=== PATIENT | female | born 1980 | race Caucasian/White ===

== ENCOUNTER 2019-06-21 08:00 | Day surgery (SDC) | payer OTHER, SELFPAY ==
--- NOTE | 2019-06-21 | PATH_ITS ---
[facility] Accession Number: [id number] . 01 Material submitted: . PART A: duodenum - DUODENAL BIOPSIES PART B: gastrointestinal site - GASTRIC ANTRAL BIOPSIES . 01 Clinical history: . A. R/O CELIAC SPRUE B. R/O H. PYLORI, GASTRITIS . 02 Diagnosis: A. Duodenum, Biopsy: Duodenal mucosa with no diagnostic abnormality. Negative for active inflammation, features of sprue, dysplasia, or malignancy. . B. Stomach, Antrum, Biopsies: Gastric antral and body mucosa with mild chronic inflammation. Negative for Helicobacter organisms by immunohistochemistry. Negative for intestinal metaplasia. Negative for dysplasia or malignancy. MRV 06/26/2019 1255 Local . 02 Electronically signed: . Chadd Ivey MD, PhD, Pathologist NPI- [id number] . 01 Gross description: . Part A: DUODENAL BIOPSIES: Received in formalin are 3 fragment(s) of cabezas, soft tissue measuring 0.3 x 0.2 x 0.2 cm to 0.2 x 0.1 x 0.1 cm submitted entirely in 1 cassette(s) Part B: GASTRIC ANTRAL BIOPSIES: Received in formalin are 2 fragment(s) of cabezas, soft tissue measuring 0.4 x 0.2 x 0.1 cm to 0.2 x 0.2 x 0.2 cm submitted entirely in 1 cassette(s) /QBJ 06/22/2019 0039 Local . 02 Microscopic: . B. An immunohistochemical stain is performed to evaluate for Helicobacter organisms, and is negative. A control stain shows appropriate reactivity. . * This test was developed and its performance characteristics determined by [facility]. It has not been cleared or approved by the U.S. Food and Drug Administration. The FDA has determined that such clearance or approval is not necessary. This test is used for clinical purposes. It should not be regarded as investigational or for research. . 02 Pathologist provided ICD-10: K29.70, R12 . 02 CPT . 817457, 377076, [id number] Performed at: 01 [facility] [address] [id number] MD Scott Peacock MD Phone: [phone] Performed at: [address] [place] [id number] [place] [id number] MD Stacie Garcia MD Phone: [phone]
[2019-06-21 08:36] VITALS: BP 113/77; PULSE 65; RESP 16; TEMP 36.2; O2SAT 99; BMI 30.5
--- NOTE | 2019-06-21 09:55 | PM.HP.1 ---
History of Present Illness History of Present Illness Date Patient Seen: 06/21/19 Time Patient Seen: 09:56 Chief complaint: [phone] [id number] Narrative: Patient presented for EGD - symptoms of atypical CP and heartburn. No change in symptoms since office visit 05/30/19. Patient History Medical History delivery delivered (Acute) Exploratory laparotomy scar (Acute) Family & Social History Social History: household members spouse Meds Home Medications and Allergies Home Medications Medication Instructions Recorded Confirmed Type etonogestrel [Nexplanon] See Rx Instructions .ROUTE .COMPLEX 06/21/19 06/21/19 History Allergies Allergy/AdvReac Type Severity Reaction Status Date / Time No Known Drug Allergies Allergy Verified 06/21/19 08:28 Review of Systems Review of Systems ROS Unobtainable: All systems reviewed & are unremarkable except as noted in HPI and below Exam Vital Signs (past 8 hours): - 06/21/19 08:36 Temperature 97.1 F L Pulse Rate 65 Respiratory Rate 16 Blood Pressure 113/77 Pulse Oximetry 99 Oxygen Delivery Method Room Air Const General: cooperative, healthy appearing, comfortable and well developed Nutritional Appearance: average body habitus and well nourished Orientation: oriented x3 HENMT Head: normocephalic and atraumatic Nose: external nose normal Resp Effort & Inspection: normal respiratory effort and able to speak in complete sentences Auscultation: clear to auscultation bilaterally Cardio Rate: regular rate Rhythm: regular rhythm Heart Sounds: S1 normal and S2 normal GI Palpation: soft, No guarding, No rigid and No tender Auscultation: normal bowel sounds Extrem Left upper extremity: no edema Right lower extremity: no edema Assessment & Plan Assessment & Plan narrative: 1. Atypical chest pain 2. [place] EGD today, further recommendations to follow.
[2019-06-21] MEDS: SODIUM CHLORIDE 0.9% 1,000 ML 70 ML IV (10:01)
[2019-06-21] MEDS: MIDAZOLAM 5 MG/5 ML VIAL IV (10:07)
[2019-06-21] MEDS: fentaNYL 250 MCG/5 ML INJ IV (10:08)
[2019-06-21] MEDS: LIDOCAINE 4% SOLN 50 ML 20 ML TOP (10:21)
--- NOTE | 2019-06-21 10:28 | P.OP.ENDO_ITS ---
Operative Date/Time/Diagnoses Date of procedure: 06/21/19 Time of procedure: 10:07 Procedure Notes Procedure in detail: Surgeon: María Underwood DO Procedure: Esophagogastroduodenoscopy with biopsy Preoperative diagnosis: 1. Atypical chest pain 2. Heartburn Postoperative diagnosis: 1. Normal-appearing esophagus 2. Small hiatal hernia approximately 2 cm 3. Mild gastritis -biopsied 4. Mild duodenitis -biopsied 5. Otherwise unremarkable Medications: Conscious sedation using 5 mg IV of Midazolam and 125 mcg IV of Fentanyl Preanesthesia Assessment An H and P was performed/updated and the Px?s ASA class is 2. The procedure was discussed in detail with the patient. The potential risks and complications including infection, bleeding, missed lesions, perforation, need for surgery in case of perforation, prolonged hospital stay, and were explained. A brief question and answer period was allotted and once all questions were answered, informed consent was obtained. The patient was brought back to the procedure room and placed on standard monitoring. The patient?s vital signs were monitored continuously throughout the entire procedure. Prior to starting, a timeout was performed to confirm the patient?s identity, allergies, medications, and procedure. Procedure in detail The patient was placed in left lateral decubitus position and a bite block was inserted. The tip of the upper endoscope was placed into the mouth and advan ángel without difficulty under direct visualization into the esophagus. Esophagus: Normal appearing esophagus, no evidence of stricture Stomach: Small hiatal hernia -2 cm found during retroflexion Mild gastritis in the antrum and body -biopsy to rule out H pylori Duodenum: Mild duodenitis in the duodenal bulb and 1st portion of the duodenum Biopsy rule out celiac sprue The patient tolerated the procedure well and will be brought back to the recovery area to be discharged once criteria are met. The total physician intraservice time was 12min. Complications There were no complications and estimated blood loss was minimal. Recommendations: Resume previous diet Continue outPx medications Follow up pathology results Office follow up if persistent symptoms Trial of Carafate as previously recommended An emergency contact number was given to the patient for any complications related to the procedure
[2019-06-21 10:29] VITALS: BP 102/63; PULSE 77; RESP 12; TEMP 36.6; O2SAT 98
[2019-06-21 10:31] VITALS: BP 103/62; PULSE 68; RESP 18; O2SAT 98
[2019-06-21 10:36] VITALS: BP 106/65; PULSE 67; RESP 18; TEMP 36.9; O2SAT 99
[2019-06-21 10:52] VITALS: BP 105/76; PULSE 69; RESP 20; TEMP 35.6; O2SAT 100
== END 2019-06-21 11:21 | disposition home or self-care (01) ==
PROVIDERS: PCP General Practice; Visit Provider Student in an Organized Health Care Education/Training Program
PROC: 0DJ08ZZ Inspection of Upper Intestinal Tract, Via Natural or Artificial Opening Endoscopic (ICD-10-PCS; CPT 43235; principal; 2019-06-21 09:30)
DX: K29.70 Gastritis, unspecified, without bleeding (principal); R07.89 Other chest pain; K44.9 Diaphragmatic hernia without obstruction or gangrene; K29.80 Duodenitis without bleeding
CPT/HCPCS: 43239; J2250; J3010